=== PATIENT | male | born 1955 | race Caucasian/White ===

== ENCOUNTER 2020-04-29 04:35 | Emergency (ER) | payer OTHER ==
--- NOTE | 2020-04-29 04:38 | ED Physician Documentation ---
History of Present Illness - Stated complaint Stated Complaint: FLANK PX - History obtained from History obtained from: Patient - Additonal information Additional information: Patient is a 65-year-old male presents with a chief complaint of right-sided flank pain and dysuria. He reports that he had a similar episode about 10 years ago when he had a right-sided kidney stone. He has had a previous appendectomy as well as transurethral resection of the prostate. He denies fevers denies taking any blood thinners reports that he is allergic to Aleve. Review of Systems Constitutional: reports: Reviewed and negative Eyes: reports: Reviewed and negative Ears: reports: Reviewed and negative Nose: reports: Reviewed and negative Throat: reports: Reviewed and negative Cardiac: reports: Reviewed and negative Respiratory: reports: Reviewed and negative GI: reports: Reviewed and negative : reports: Frequency, Hesitancy, Other (Right-sided flank pain) Skin: reports: Reviewed and negative Musculoskeletal: reports: Reviewed and negative Neurologic: reports: Reviewed and negative Psychiatric: reports: Reviewed and negative Endocrine: reports: Reviewed and negative Immunocompromised: reports: Reviewed and negative PD PAST MEDICAL HISTORY - Present Medications Home Medications: Ambulatory Orders Medication Instructions Recorded Confirmed Hydrocodone/Acetaminophen [Morse 1 each PO Q6HR PRN #14 tablet 04/29/20 5-325 Tablet] Ondansetron Odt [Zofran Odt] 4 mg TL Q6H PRN #10 tablet 04/29/20 - Allergies Allergies/Adverse Reactions: Allergies Allergy/AdvReac Type Severity Reaction Status Date / Time naproxen AdvReac Nausea Verified 04/29/20 04:54 PD ED PE NORMAL - Vitals Vital signs reviewed: Yes - General General: Alert and oriented X 3, No acute distress, Well developed/nourished - HEENT HEENT: PERRL, Moist mucous membranes - Neck Neck: Supple, no meningeal sign, No JVD - Cardiac Cardiac: RRR, No murmur, Strong equal pulses - Respiratory Respiratory: No respiratory distress, Clear bilaterally - Abdomen Abdomen: Normal bowel sounds, Soft, Non tender, Non distended, No organomegaly - Back Back: Other (Positive for right-sided CVA tenderness to palpation) - Derm Derm: Normal color, Warm and dry, No rash - Extremities Extremities: No deformity, No tenderness to palpate, Normal ROM s pain, No edema, No calf tenderness / cord - Neuro Neuro: Alert and oriented X 3, social services designee 2-12 intact, No motor deficit, No sensory deficit, Normal speech - Psych Psych: Normal mood, Normal affect Results - Vitals Vitals: Vital Signs - 24 hr 04/29/20 04/29/20 04/29/20 04:54 04:55 06:16 Temperature 36.5 C 36.5 C 36.6 C Heart Rate 70 70 65 Respiratory 14 14 16 Rate Blood Pressure 134/80 H 134/80 H 134/85 H O2 Saturation 98 98 97 Oxygen O2 Source Room air - Labs Labs: Laboratory Tests 04/29/20 04/29/20 04/29/20 05:10 05:10 05:10 WBC 8.7 RBC 4.58 L Hgb 14.4 Hct 41.6 L MCV 90.8 MCH 31.4 H MCHC 34.6 RDW 11.9 L Plt Count 251 MPV 10.2 Neut # (Auto) 6.5 Lymph # (Auto) 1.3 L Bay # (Auto) 0.4 Eos # (Auto) 0.4 Baso # (Auto) 0.1 Absolute Nucleated RBC 0.00 Nucleated RBC % 0.0 PT 11.9 INR 1.1 APTT 26.4 Sodium 136 Potassium 3.9 Chloride 104 Carbon Dioxide 23 Anion Gap 9.0 BUN 20 Creatinine 0.9 Estimated GFR (MDRD) 85 L Glucose 129 H Lactic Acid Calcium 9.2 Total Bilirubin 0.6 AST 19 ALT 17 Alkaline Phosphatase 53 Total Creatine Kinase 91 Total Protein 7.5 Albumin 4.3 Globulin 3.2 Albumin/Globulin Ratio 1.3 Lipase 40 Urine Color Urine Clarity Urine pH Ur Specific [place] Urine Protein Urine Glucose (UA) Urine Ketones Urine Occult Blood Urine Nitrite Urine Bilirubin Urine Urobilinogen Ur Leukocyte Esterase Urine RBC Urine WBC Ur Squamous Epith Cells Urine Bacteria Urine Mucus Ur Microscopic Review Urine Culture Comments 04/29/20 04/29/20 05:10 05:18 WBC RBC Hgb Hct MCV MCH MCHC RDW Plt Count MPV Neut # (Auto) Lymph # (Auto) Bay # (Auto) Eos # (Auto) Baso # (Auto) Absolute Nucleated RBC Nucleated RBC % PT INR APTT Sodium Potassium Chloride Carbon Dioxide Anion Gap BUN Creatinine Estimated GFR (MDRD) Glucose Lactic Acid 1.6 Calcium Total Bilirubin AST ALT Alkaline Phosphatase Total Creatine Kinase Total Protein Albumin Globulin Albumin/Globulin Ratio Lipase Urine Color YELLOW Urine Clarity CLEAR Urine pH 5.5 Ur Specific [place] >=1.030 H Urine Protein TRACE Urine Glucose (UA) NEGATIVE Urine Ketones NEGATIVE Urine Occult Blood MODERATE H Urine Nitrite NEGATIVE Urine Bilirubin NEGATIVE Urine Urobilinogen 0.2 (NORMAL) Ur Leukocyte Esterase NEGATIVE Urine RBC 6-10 H Urine WBC 0-3 Ur Squamous Epith Cells RARE Squamous Urine Bacteria Rare Urine Mucus Marked Strands Ur Microscopic Review INDICATED Urine Culture Comments NOT INDICATED PD MEDICAL DECISION MAKING - ED course Complexity details: reviewed results, re-evaluated patient, considered diff erential, d/w patient, d/w family ED course: History and exam are concerning for ureterolithiasis. Exam shows a 2 mm right-sided UVJ stone. Kidney function is within normal limits he is afebrile. Is tolerated p.o. challenge and pain is controlled and able to urinate. Will discharge patient home with a prepack and a prescription for analgesics and antiemetics as well as referral to urology and her primary care provider. Departure - Departure Disposition: Home, Self Care Clinical Impression: Ureterolithiasis, Kidney stone on right side Condition: Stable Instructions: ED Stone Renal W Colic Follow-Up: Jaswinder Schofield MD [Provider Admit Priv/Credential] - Tomorrow Katerina Encarnacion MD [Physician No Access] - Tomorrow Prescriptions: Hydrocodone/Acetaminophen [Morse 5-325 Tablet] 1 each PO Q6HR PRN #14 tablet PRN Reason: Pain Ondansetron Odt [Zofran Odt] 4 mg TL Q6H PRN #10 tablet PRN Reason: Nausea / Vomiting Comments: Hydrate well, take pain meds as needed for severe pain. Take Zofran as needed for nausea or vomiting establish care with a primary care provider and follow-up with urology as well.
[2020-04-29] MEDS ORDERED: HYDROmorphone 0.5 MG/0.5 ML SYRINGE IVP STA (04:59)
[2020-04-29] MEDS ORDERED: SODIUM CHLORIDE 0.9% 1,000 ML IV STA (04:59)
[2020-04-29] MEDS ORDERED: ONDANSETRON 4 MG/2 ML VIAL IVP STA (04:59)
[2020-04-29 05:32] LABS: BASOPHILS # (AUTO) 0.1 10^3/uL (0.0-0.1); BASOPHILS % (AUTO) 0.8 %; EOSINOPHILS # (AUTO) 0.4 10^3/uL (0.0-0.7); EOSINOPHILS % (AUTO) 4.3 %; HGB - HEMOGLOBIN 14.4 g/dL (14.0-18.0); LYMPHOCYTES # (AUTO) 1.3 10^3/uL (1.5-3.5); LYMPHOCYTES % (AUTO) 15.4 %; MEAN CORPUSCULAR HEMOGLOBIN 31.4 pg (27.0-31.0); MEAN CORPUSCULAR HGB CONC 34.6 g/dL (32.0-36.0); MEAN CORPUSCULAR VOLUME 90.8 fL (80.0-94.0); MEAN PLATELET VOLUME 10.2 fL (7.4-11.4); MONOCYTES # (AUTO) 0.4 10^3/uL (0.0-1.0); MONOCYTES % (AUTO) 4.4 %; NEUTROPHILS # (AUTO) 6.5 10^3/uL (1.5-6.6); NEUTROPHILS % (AUTO) 74.6 %; PLT - PLATELET COUNT 251 10^3/uL (130-450); RED BLOOD COUNT 4.58 10^6/uL (4.70-6.10); RED CELL DISTRIBUTION WIDTH 11.9 % (12.0-15.0); WHITE BLOOD COUNT 8.7 x10^3/uL (4.8-10.8)
[2020-04-29 05:37] LABS: BILIRUBIN,URINE NEGATIVE (NEGATIVE); CLARITY,URINE CLEAR (CLEAR); GLUCOSE, URINE (UA) NEGATIVE (NEGATIVE); KETONES,URINE (UA) NEGATIVE (NEGATIVE); LEUKOCYTE ESTERASE, URINE NEGATIVE (NEGATIVE); NITRITE,URINE NEGATIVE (NEGATIVE); OCCULT BLOOD,URINE MODERATE (NEGATIVE); PH,URINE 5.5 PH (5.0-7.5); PROTEIN,URINE TRACE mg/dL (NEGATIVE); UROBILINOGEN,URINE 0.2 (NORMAL) E.U./dL (NORMAL)
[2020-04-29 05:38] LABS: INR 1.1 (0.8-1.2); PT - PROTHROMBIN TIME 11.9 secs (9.9-12.6)
[2020-04-29 05:41] LABS: BACTERIA,URINE Rare /HPF (None Seen); MUCUS,URINE Marked Strands; SQUAMOUS EPITHELIAL CELL,UR RARE Squamous (<= Few)
[2020-04-29 05:45] LABS: PARTIAL THROMBOPLASTIN TIME 26.4 secs (24.9-33.3)
[2020-04-29 05:46] LABS: ALBUMIN 4.3 g/dL (3.2-5.5); ALBUMIN/GLOBULIN RATIO 1.3 (1.0-2.2); BILIRUBIN,TOTAL 0.6 mg/dL (0.2-1.0); CALCIUM 9.2 mg/dL (8.5-10.3); CREATININE 0.9 mg/dL (0.6-1.2); TOTAL PROTEIN 7.5 g/dL (6.7-8.2)
[2020-04-29] MEDS ORDERED: HYDROcod/ACET 5/325 Prepack 4 PO STA (06:02)
[2020-04-29 06:17] VITALS: BP 134/85
--- NOTE | 2020-04-29 08:29 | CT Report ---
PROCEDURE: Abdomen/Pelvis WO INDICATIONS: Right flank pain TECHNIQUE: Noncontrast 5 mm thick sections acquired from the diaphragms to the symphysis. 5 mm coronal and sagi ttal reformats were then performed. For radiation dose reduction, the following was used: automated exposure control, adjustment of mA and/or kV according to patient size. COMPARISON: None. FINDINGS: Image quality: Excellent. ABDOMEN: Lung bases: Lung bases are clear. Heart size is normal. Urinary tract: There are multiple nonobstructing bilateral intrarenal calculi measuring up to 3 mm. M ild right perinephric fat stranding with mild right hydronephrosis and hydroureter. There is an obstr ucting calculus at the right UVJ measuring 3 mm (series 3 image 139 and series 6 image 51). No ureter al calculus on the left. No bladder calculus or other significant bladder finding. Remaining solid organs: Liver and spleen are normal in size. Gallbladder normal Pancreas is normal in contours. No adrenal nodules. Peritoneum and bowel: Unenhanced bowel loops demonstrate normal wall thickness and caliber. No free fluid or air. Nodes and vessels: No retroperitoneal or mesenteric adenopathy by size criteria. Aorta and inferior vena cava are normal in caliber. Miscellaneous: No ventral hernias. PELVIS: Genitourinary: Bladder wall thickness is normal. Miscellaneous: No inguinal hernias or adenopathy. Bones: No suspicious bony lesions. No vertebral body compression fractures. IMPRESSION: Right UVJ calculus measuring 3 mm and producing mild hydroureteronephrosis. Reviewed by: Chance Lo MD on 04/29/2020 8:28 AM PDT Approved by: Chance Lo MD on 04/29/2020 8:28 AM PDT Station ID: [id number]
== END 2020-04-29 06:16 | disposition home or self-care (01) ==
LOC: ED 04:35
DX: N13.2 Hydronephrosis with renal and ureteral calculous obstruction (principal)
CPT/HCPCS: 36415; 74176; 80053; 81001; 82550; 83605; 83690; 85025; 85610; 85730; 96374; 96375; 99284; J1170; 81003; 87086

== ENCOUNTER 2022-07-05 19:15 | Outpatient (CLI) | payer OTHER ==
--- NOTE | 2022-07-06 11:22 | Ultrasound Report ---
PROCEDURE: Abdomen Complete INDICATIONS: CALCULUS OF GALLBLADDER TECHNIQUE: Real-time scanning was performed of the abdominal and retroperitoneal organs, with image documentatio n. COMPARISON: CT of abdomen and pelvis without, 04/29/2020. FINDINGS: Liver: Liver is normal in size and demonstrates increased echotexture. Gallbladder: There is a mobile gallstone measuring 1.7 cm. No gallbladder wall thickening, pericholec ystic fluid collection or sonographic Hayward sign. Biliary ducts: Intrahepatic bile ducts are non-dilated. Extrahepatic bile duct caliber measures 5.6 mm. Normal is 6-7 mm or less in diameter, or 10 mm or less post-cholecystectomy. Pancreas: Visualized portions of the pancreas are sonographically normal. Spleen: Spleen is normal in size and homogeneous in echotexture. Kidneys: Kidneys are normal in size and echotexture. Right kidney measures 13.1 cm long; left kidne y measures 11.8 cm long. No hydronephrosis. No solid masses. There is a 3.7 x 4.0 x 3.2 cm simple appearing cyst in the superior pole of the right kidney. There may be tiny punctate renal calculi. Aorta: Abdominal aorta is mildly aneurysmal measuring 3.1 cm approximately, tapering to normal calibe r distally. Atherosclerotic plaques are noted in the aorta. Iliacs: Proximal common iliac arteries are normal in caliber at less than 2.5 cm. IVC: Intrahepatic inferior vena cava is patent. Miscellaneous: No free abdominal fluid. IMPRESSION: 1. Cholelithiasis. No ultrasound findings to suggest acute cholecystitis. 2. Liver demonstrates increased echotexture, most likely secondary to hepatic fatty infiltration. Oth er hepatocellular disease could have a similar sonographic appearance. 3. Large simple appearance cyst in the superior pole of the right kidney. 4. Mild abdominal aortic aneurysm. 5. Suspect tiny nonobstructive renal calculi bilaterally. Reviewed by: Rehana Villanueva MD on 07/06/2022 11:21 AM PST Approved by: Rehana Villanueva MD on 07/06/2022 11:21 AM PST Station ID: [id number]
== END 2022-07-05 19:16 | disposition home or self-care (01) ==
LOC: DI 19:15
PROVIDERS: ATTEND Internal Medicine
DX: K80.20 Calculus of gallbladder without cholecystitis without obstruction (principal); N28.1 Cyst of kidney, acquired; I71.40 Abdominal aortic aneurysm, without rupture, unspecified

== ENCOUNTER 2023-11-06 06:43 | Outpatient (CLI) | payer OTHER ==
--- NOTE | 2023-11-06 19:17 | Ultrasound Report ---
PROCEDURE: Abdomen Complete INDICATIONS: GALLSTONES, NEPHROLITHIASIS, FAM HX OF PANCREAS CA TECHNIQUE: Real-time scanning was performed of the abdominal and retroperitoneal organs, with image documentatio n. COMPARISON: Abdominal ultrasound 07/05/2022. CT KUB 04/29/2020. FINDINGS: Liver: Measures 17.1 cm in length. Increased in echogenicity. Gallbladder: Gallbladder is nondistended. Gallstone measuring 1.5 cm. No gallbladder wall thickening. No pericholecystic fluid. Negative sonographic Hayward sign. Biliary ducts: Intrahepatic bile ducts are non-dilated. Extrahepatic bile duct caliber measures 5 m m. Normal is 6-7 mm or less in diameter, or 10 mm or less post-cholecystectomy. Pancreas: Visualized portions of the pancreatic head are sonographically normal. Body and tail not w ell seen due to overlying bowel gas. Spleen: Spleen is normal in size and homogeneous in echotexture. Measures 10.5 cm. Kidneys: Kidneys are normal in size and echotexture. Right kidney measures 12.9 cm long; left kidne y measures 11.2 cm long. No hydronephrosis. No solid masses. No complex renal cystic lesions which require follow-up. Simple right renal cyst measuring 4.8 cm. Aorta: Visualized aorta is normal in caliber at less than 3 cm. Iliacs: Proximal common iliac arteries are normal in caliber at less than 2.5 cm. IVC: Intrahepatic inferior vena cava is patent. Miscellaneous: No free abdominal fluid. IMPRESSION: 1. No acute cholecystitis. Gallstone measuring 1.5 cm. 2. Increased echogenicity of the hepatic parenchyma. This is most commonly seen in hepatic steatosis. Other forms of hepatocellular disease could have a similar appearance. 3. No hydronephrosis. Reviewed by: Ernst Acosta MD on 11/06/2023 7:15 PM PDT Approved by: Ernst Acosta MD on 11/06/2023 7:15 PM PDT Station ID: [id number]
== END 2023-11-06 06:44 | disposition home or self-care (01) ==
LOC: DI 06:43
PROVIDERS: ATTEND Physician Assistant
DX: K80.20 Calculus of gallbladder without cholecystitis without obstruction (principal)